=== PATIENT | male | born 1995 | race Caucasian/White ===

== ENCOUNTER 2019-08-11 17:35 | Emergency (ER) | payer OTHER ==
[2019-08-11 17:53] VITALS: TEMP 98.7
[2019-08-11] MEDS ORDERED: PENICILLIN VK 500MG STARTER 4 TAB BTL PO STA (18:13)
[2019-08-11] MEDS ORDERED: LORazepam 1 MG TAB PO STA (18:13)
--- NOTE | 2019-08-11 18:35 | ED ---
Neuro HPI - General Chief Complaint: Neuro Symptoms/Deficit Stated Complaint: Tooth pain, facial and arm numbness Time Seen by Provider: 08/11/19 17:55 Source: patient, family, RN notes reviewed, old records reviewed Mode of arrival: ambulatory Limitations: no limitations - History of Present Illness Is the patient presenting with stroke symptoms?: No Initial Comments: This Patient is a 24-year-old male with history of anxiety. He presents emergency department today with 5 days of left-sided facial tingling and numbness and dental pain after brushing his teeth at that time. Patient also states that over the past few days but she seems related to anxiety has had some tingling in arms and legs. He states that he has no headache. He denies any chest pain or shortness of breath. He reported to come to the emergency department because he was anxious as to why this is being caused. He states he does not use any medication for anxiety at this time. Patient denies any other complaints. - Related Data Home Medications: Previous Rx's Medication Instructions Recorded Ibuprofen [Motrin] 600 mg PO Q8HR PRN #20 tab 08/11/19 Penicillin V Potassium [Pen Vee K] 500 mg PO TID #21 tablet 08/11/19 Allergies/Adverse Reactions: Allergies Allergy/AdvReac Type Severity Reaction Status Date / Time No Known Allergies Allergy Verified 01/08/15 23:47 Review of Systems ROS Statement: Those systems with pertinent positive or pertinent negative responses have been documented in the HPI. ROS Other: All systems not noted in ROS Statement are negative. General Exam - General Exam Comments Initial Comments: 24-year-old male. Alert and oriented 3. Patient appears somewhat anxious. Limitations: no limitations General appearance: alert, in no apparent distress Head exam: Present: atraumatic, normocephalic, normal inspection Eye exam: Present: normal appearance, PERRL, EOMI. Absent: scleral icterus, conjunctival injection, periorbital swelling ENT exam: Present: normal exam, mucous membranes moist Neck exam: Present: normal inspection. Absent: tenderness, meningismus, lymphadenopathy Respiratory exam: Present: normal lung sounds bilaterally. Absent: respiratory distress, wheezes, rales, rhonchi, stridor Cardiovascular Exam: Present: regular rate, normal rhythm, normal heart sounds. Absent: systolic murmur, diastolic murmur, rubs, gallop, clicks GI/Abdominal exam: Present: soft, normal bowel sounds. Absent: distended, tenderness, guarding, rebound, rigid Extremities exam: Present: normal inspection, full ROM, normal capillary refill. Absent: tenderness, pedal edema, joint swelling, calf tenderness Back exam: Present: normal inspection, full ROM Neurological exam: Present: alert, oriented X3, CN II-XII intact Expanded Patient oriented to: Present: person Speech: Present: fluid speech Cranial nerves: EOM's Intact: Normal Cerebellar function: Finger to Nose: Normal Upper motor neuron: Elvis Neglect: Normal Sensory exam: Upper Extremity Light Touch: Normal, Lower Extremity Light Touch: Normal Motor strength exam: RUE: 5, LUE: 5, RLE: 5, LLE: 5 Eye Response: (4) open spontaneously Motor Response: (6) obeys commands Verbal Response: (5) oriented Amy Total: 15 Psychiatric exam: Present: normal affect, normal mood Skin exam: Present: warm, dry, intact, normal color. Absent: rash Stroke MDM - Medical Decision Making This patient's a 24-year-old male who presents emergency Department stay with left lower dental pain after brushing C5 days ago. He then states that he's had some tingling sensation over the left side. He has no murmur or deficits. Does report that he has sensation in hands and legs. Patient has an NIH of 0. He has no headache. No other complaints. Patient has full upper and lower extremity strength. At this time discussed this with Dr. Carrillo. I believe julio bruce's symptoms are related to anxiety. He does report that he is very anxious. Patient does have some evidence of gingival erythema. Discussed likely consider for myeloma and dental infection and nerve irritation. Discussed with the Patient on antibiotic. He was given Ambien and emergency department for anxiety does report some improvement of his symptoms. Past Medical History Past Medical History: No Reported History History of Any Multi-Drug Resistant Organisms: None Reported Past Surgical History: No Surgical Hx Reported Past Psychological History: Anxiety Smoking Status: Never smoker Past Alcohol Use History: Occasional Past Drug Use History: Marijuana Course Vital Signs 08/11/19 17:51 Temperature 98.7 F Pulse Rate 107 H Respiratory 19 Rate Blood Pressure 163/82 O2 Sat by Pulse 98 Oximetry Disposition Clinical Impression: Anxiety, Pain, dental, Paresthesia Disposition: HOME SELF-CARE Condition: Good Instructions (If sedation given, give patient instructions): Generalized Anxiety Disorder (ED), Toothache (ED) Additional Instructions: Taken a antibiotic for dental pain. Recommended following up with dentist as well as a primary care physician for further evaluation. Prescriptions: Ibuprofen [Motrin] 600 mg PO Q8HR PRN #20 tab PRN Reason: Pain Penicillin V Potassium [Pen Vee K] 500 mg PO TID #21 tablet Is patient prescribed a controlled substance at d/c from ED?: No Referrals: None,Stated [Primary Care Provider] - 1-2 days Filippo Ritter MD [REFERRING] - 1-2 days Time of Disposition: 18:33
[2019-08-11 18:46] VITALS: RESP 20
[2019-08-11 18:53] VITALS: BP 141/98; PULSE 78
== END 2019-08-11 19:17 | disposition home or self-care (01) ==
LOC: EC 17:35
DX: F41.9 Anxiety disorder, unspecified (principal); K08.89 Other specified disorders of teeth and supporting structures; K06.8 Other specified disorders of gingiva and edentulous alveolar ridge
CPT/HCPCS: 99284

== ENCOUNTER 2019-08-29 18:12 | Emergency (ER) | payer OTHER ==
[2019-08-29 18:22] VITALS: RESP 18
--- NOTE | 2019-08-29 18:47 | ED ---
General Adult HPI - General Chief complaint: Urogenital Stated complaint: blood in urine Time Seen by Provider: 08/29/19 18:34 Source: patient Mode of arrival: ambulatory Limitations: no limitations - History of Present Illness Initial comments: Patient presents the ED with his father for evaluation. Patient states that he has had hematuria for the past 3 days or so, and intermittent right flank pain since last night. Patient also states that he has had slight "burning" pain at the end of urination. Patient denies known history of renal stones. Patient denies trauma or injury, fever or chills, headache, chest pain, dyspnea, dizziness, abdominal pain, nausea or vomiting, diarrhea, urinary frequency, penile swelling or discharge, testicular pain or swelling, leg pain/numbness/weakness, incontinence, urinary retention, or any other symptoms o r complaints. Patient states that his right flank pain is currently very mild and dull. - Related Data Home Medications Medication Instructions Recorded Confirmed Ibuprofen [Motrin Ib] 400 mg PO Q6H 08/11/19 08/11/19 Previous Rx's Medication Instructions Recorded Ibuprofen [Motrin] 600 mg PO Q8HR PRN #20 tab 08/11/19 Penicillin V Potassium [Pen Vee K] 500 mg PO TID #21 tablet 08/11/19 Allergies Allergy/AdvReac Type Severity Reaction Status Date / Time No Known Allergies Allergy Verified 08/29/19 18:22 Review of Systems ROS Statement: Those systems with pertinent positive or pertinent negative responses have been documented in the HPI. ROS Other: All systems not noted in ROS Statement are negative. Past Medical History Past Medical History: No Reported History History of Any Multi-Drug Resistant Organisms: None Reported Past Surgical History: No Surgical Hx Reported Past Psychological History: Anxiety Smoking Status: Current every day smoker Past Alcohol Use History: Occasional Past Drug Use History: Marijuana General Exam Limitations: no limitations General appearance: alert, in no apparent distress Head exam: Present: atraumatic, normocephalic Eye exam: Present: normal appearance, EOMI ENT exam: Present: mucous membranes moist Respiratory exam: Present: normal lung sounds bilaterally. Absent: respiratory distress, wheezes, rales, rhonchi Cardiovascular Exam: Present: regular rate, normal rhythm, normal heart sounds, other (Normal radial pulses bilaterally) GI/Abdominal exam: Present: soft. Absent: distended, tenderness, guarding Extremities exam: Present: full ROM. Absent: tenderness, pedal edema Back exam: Present: full ROM. Absent: tenderness, CVA tenderness (R), CVA tenderness (L) Neurological exam: Present: alert, oriented X3, other (Patient has no evidence of lower extremity neurological deficit or saddle anesthesia on exam.). Absent: motor sensory deficit Psychiatric exam: Present: normal affect, normal mood Skin exam: Present: warm, dry, intact, normal color Course Vital Signs 08/29/19 18:18 Temperature 97.8 F Pulse Rate 84 Respiratory 18 Rate Blood Pressure 140/87 O2 Sat by Pulse 99 Oximetry Medical Decision Making - Medical Decision Making I suspect that the patient's symptoms are likely secondary to a recently passed renal stone given his CT abdomen/pelvis findings. Patient reports having minimal to no pain while in the ED. Patient's UA is suggestive of a possible mild UTI. Patient is afebrile and with very mild leukocytosis. Patient was given a dose of oral ciprofloxacin while in the ED, and will discharge patient home with a prescription for a course of ciprofloxacin. Patient was counseled about renal stones and UTIs, and he feels comfortable going home with his father at this time. He was clearly explained return and follow-up instructions. He was instructed to return to the ED should he develop new or worsening pain, a fever, chills, vomiting, feeling dizzy or faint, shortness of breath, or new or worsening symptoms. He feels comfortable with this plan. - Lab Data Result diagrams: 08/29/19 18:48 08/29/19 18:48 Lab Results 08/29/19 08/29/19 08/29/19 Range/Units 18:40 18:48 18:48 WBC 11.3 H (3.8-10.6) k/uL RBC 4.76 (4.30-5.90) m/uL Hgb 14.9 (13.0-17.5) gm/dL Hct 44.0 (39.0-53.0) % MCV 92.6 (80.0-100.0) fL MCH 31.3 (25.0-35.0) pg MCHC 33.8 (31.0-37.0) g/dL RDW 12.8 (11.5-15.5) % Plt Count 300 (150-450) k/uL Neutrophils % 68 % Lymphocytes % 23 % Monocytes % 6 % Eosinophils % 1 % Basophils % 0 % Neutrophils # 7.7 (1.3-7.7) k/uL Lymphocytes # 2.6 (1.0-4.8) k/uL Monocytes # 0.7 (0-1.0) k/uL Eosinophils # 0.1 (0-0.7) k/uL Basophils # 0.0 (0-0.2) k/uL Sodium 136 L (137-145) mmol/L Potassium 4.4 (3.5-5.1) mmol/L Chloride 103 (98-107) mmol/L Carbon Dioxide 24 (22-30) mmol/L Anion Gap 9 mmol/L BUN 9 (9-20) mg/dL Creatinine 0.68 (0.66-1.25) mg/dL Est GFR (CKD-EPI)AfAm >90 (>60 ml/min/1.73 sqM) Est GFR (CKD-EPI)NonAf >90 (>60 ml/min/1.73 sqM) Glucose 89 (74-99) mg/dL Calcium 9.8 (8.4-10.2) mg/dL Urine Color Colorless Urine Appearance Clear (Clear) Urine pH 7.0 (5.0-8.0) Ur Specific Nicholls 1.002 (1.001-1.035) Urine Protein Negative (Negative) Urine Glucose (UA) Negative (Negative) Urine Ketones Negative (Negative) Urine Blood Small H (Negative) Urine Nitrite Negative (Negative) Urine Bilirubin Negative (Negative) Urine Urobilinogen <2.0 (<2.0) mg/dL Ur Leukocyte Esterase Moderate H (Negative) Urine RBC <1 (0-5) /hpf Urine WBC 10 H (0-5) /hpf Ur Squamous Epith Cells <1 (0-4) /hpf Urine Bacteria Rare H (None) /hpf - Radiology Data Radiology results: report reviewed (CT abdomen and pelvis without contrast shows: mild right sided pelvicaliectasis, which may be secondary to a radiolucent stone or a recently passed stone; mild circumferential bladder wall thickening) Disposition Clinical Impression: Flank pain Narrative: Possible UTI; suspected recently passed renal stone Disposition: HOME SELF-CARE Condition: Stable Instructions (If sedation given, give patient instructions): Kidney Stones (ED), Urinary Tract Infection in Men (ED) Additional Instructions: Return to the ER immediately should you develop new or worsening pain, a fever, chills, vomiting, feeling dizzy or faint, shortness of breath, or new or worsening symptoms. Follow up closely with your primary care provider. Is patient prescribed a controlled substance at d/c from ED?: No Referrals: None,Stated [Primary Care Provider] - 1-2 days Filippo Ritter MD [REFERRING] - 1-2 days Time of Disposition: 20:07
[2019-08-29 19:01] LABS: Appearance,Urine Clear (Clear); Bacteria,Urine Rare /hpf; Bilirubin,Urine Negative (Negative); Blood,Urine Small (Negative); Color,Urine Colorless; Glucose,Urine (UA) Negative (Negative); Ketones,Urine Negative (Negative); Leukocyte Esterase,Urine Moderate (Negative); Nitrite,Urine Negative (Negative); Protein,Urine Negative (Negative); RBC,Urine <1 /hpf (0-5); Specific Gravity,Urine 1.002 (1.001-1.035); Squamous Epithelial Cell,Urine <1 /hpf (0-4); Urobilinogen,Urine <2.0 mg/dL (<2.0); WBC,Urine 10 /hpf (0-5)
[2019-08-29 19:21] LABS: Basophils % (A) 0 %; Eosinophils # (A) 0.1 k/uL (0-0.7); Eosinophils % (A) 1 %; HGB 14.9 gm/dL (13.0-17.5); Lymphocytes # (A) 2.6 k/uL (1.0-4.8); Lymphocytes % (A) 23 %; MCH 31.3 pg (25.0-35.0); MCHC 33.8 g/dL (31.0-37.0); MCV 92.6 fL (80.0-100.0); Mean Platelet Volume 8.1; Monocytes # (A) 0.7 k/uL (0-1.0); Monocytes % (A) 6 %; Neutrophils # (A) 7.7 k/uL (1.3-7.7); Neutrophils % (A) 68 %; Platelet Count 300 k/uL (150-450); RBC 4.76 m/uL (4.30-5.90); RDW 12.8 % (11.5-15.5); WBC 11.3 k/uL (3.8-10.6)
--- NOTE | 2019-08-29 19:21 | CT ---
EXAMINATION TYPE: CT abdomen pelvis wo con DATE OF EXAM: 08/29/2019 COMPARISON: None HISTORY: 24-year-old male Hematuria, low back pain. CT DLP: 1835.4 mGycm. Automated exposure control for dose reduction was used. TECHNIQUE: Contiguous axial scanning of the abdomen and pelvis without IV contrast. Coronal and sagit kenyetta reconstructions performed. FINDINGS: LUNG BASES: No significant abnormality is appreciated. LIVER/GB: No significant abnormality is appreciated by noncontrast CT. PANCREAS: No significant abnormality is seen by noncontrast CT. SPLEEN: No significant abnormality is seen by noncontrast CT. ADRENALS: No significant abnormality is seen by noncontrast CT. KIDNEYS: There is mild right-sided pelvicaliectasis. No renal calculi. No suspicious calcification se en along the course of either ureter. LYMPH NODES: No mesenteric or retroperitoneal lymphadenopathy. BOWEL: No dilated small bowel, free fluid, or free air. Normal appendix. While snowboarding. No latonya colonic inflammatory change. PELVIS: Possible ventral lateral thickening. No abnormal fluid collection in pelvis or pelvic lymphad enopathy. BONES: No osseous destructive process. Degenerative disc space narrowing L5-S1. IMPRESSION: 1. Mild right-sided pelvicaliectasis. Findings may be secondary to a radiolucent stone or reflect a recently passed stone. No additional nephrolithiasis seen. 2. Mild circumferential bladder wall thickening; correlate to exclude cystitis.
[2019-08-29 19:37] LABS: African American GFR (CKD) >90 (>60 ml/min/1.73 sqM); Anion Gap 9 mmol/L; Blood Urea Nitrogen 9 mg/dL (9-20); Calcium 9.8 mg/dL (8.4-10.2); Carbon Dioxide 24 mmol/L (22-30); Chloride 103 mmol/L (98-107); Glucose 89 mg/dL (74-99); Non-African American GFR(CKD) >90 (>60 ml/min/1.73 sqM); Potassium 4.4 mmol/L (3.5-5.1); Sodium 136 mmol/L (137-145)
[2019-08-29] MEDS ORDERED: CIPROFLOXACIN HCL 500 MG TAB PO STA (20:00)
[2019-08-29 20:21] VITALS: BP 140/80; PULSE 78; TEMP 97.9
== END 2019-08-29 20:21 | disposition home or self-care (01) ==
LOC: EC 18:12
DX: R10.9 Unspecified abdominal pain (principal); D72.829 Elevated white blood cell count, unspecified; Z87.442 Personal history of urinary calculi; F17.200 Nicotine dependence, unspecified, uncomplicated; Z79.1 Long term (current) use of non-steroidal anti-inflammatories (NSAID)
CPT/HCPCS: 36415; 74176; 80048; 81001; 85025; 99284

== ENCOUNTER → 2020-05-16 | Outpatient (CLI) | payer OTHER | END | disposition home or self-care (01) | LOC: LABWHC1 13:45 | PROVIDERS: ATTEND Emergency Medicine | DX: Z20.822 Contact with and (suspected) exposure to COVID-19 (principal) | CPT/HCPCS: U0003; C9803; U0005 ==

== ENCOUNTER 2022-10-30 18:42 | Emergency (ER) | payer OTHER ==
[2022-10-30 19:23] VITALS: RESP 20
[2022-10-30] MEDS ORDERED: LIDOCAINE 1% INJ 10MG/ML (30 ML VIAL-PF) SQ ONE (21:01)
--- NOTE | 2022-10-30 21:42 | ED ---
Wound/Laceration HPI - General Chief Complaint: Wound/Laceration Stated Complaint: @ work Cut L Thumb to the bone Time Seen by Provider: 10/30/22 21:00 Source: patient Mode of arrival: ambulatory Limitations: no limitations - History of Present Illness Initial Comments: Patient is a 27-year-old male who presents to the emergency department for laceration. Patient cut left thumb on a knife at work. He reports minimal pain. No numbness or tingling. No issues with range of motion. Tetanus is up-to-date. - Related Data Home Medications Medication Instructions Recorded Confirmed Ibuprofen [Motrin Ib] 400 mg PO Q6H 08/11/19 08/11/19 Previous Rx's Medication Instructions Recorded Ibuprofen [Motrin] 600 mg PO Q8HR PRN #20 tab 08/11/19 Penicillin V Potassium [Pen Vee K] 500 mg PO TID #21 tablet 08/11/19 Ibuprofen [Motrin] 800 mg PO Q8HR PRN #30 tab 10/30/22 Allergies Allergy/AdvReac Type Severity Reaction Status Date / Time No Known Allergies Allergy Verified 08/29/19 18:22 Review of Systems ROS Statement: Those systems with pertinent positive or pertinent negative responses have been documented in the HPI. ROS Other: All systems not noted in ROS Statement are negative. Past Medical History Past Medical History: No Reported History History of Any Multi-Drug Resistant Organisms: None Reported Past Surgical History: No Surgical Hx Reported Past Psychological History: Anxiety Past Alcohol Use History: Occasional Past Drug Use History: Marijuana General Exam Limitations: no limitations General appearance: alert, in no apparent distress Eye exam: Present: normal appearance, PERRL, EOMI. Absent: scleral icterus, conjunctival injection, periorbital swelling Respiratory exam: Present: normal lung sounds bilaterally. Absent: respiratory distress, wheezes, rales, rhonchi, stridor Extremities exam: Present: other (2 cm laceration tip of left thumb no tendons or bone visualized non bleeding neurocascularly intact full ROM ) Neurological exam: Present: alert, oriented X3, CN II-XII intact Psychiatric exam: Present: normal affect, normal mood Skin exam: Present: warm, dry, intact, normal color. Absent: rash Course Vital Signs 10/30/22 10/30/22 19:20 22:08 Temperature 98.5 F 98.6 F Pulse Rate 78 83 Respiratory 20 20 Rate Blood Pressure 141/86 130/85 O2 Sat by Pulse 98 98 Oximetry Procedures - Laceration Laceration #1 Indication: laceration Site: other (left thumb ) Description: flap Anesthesia Technique: local infiltration, nerve block Pre-repair: wound explored Type of Sutures: nylon Size of Sutures: 4-0 Number of Sutures: 3 Technique: simple, interrupted Patient Tolerated Procedure: well, no complications Medical Decision Making - Medical Decision Making Was pt. sent in by a medical professional or institution ([facility] Porras, WARDROBE ATTENDANT, urgent care, hospital, or long-term...) When possible be specific @ -No Did you speak to anyone other than the patient for history (EMS, parent, family, police, friend...)? What history was obtained from this source @ -No Did you review nursing and triage notes (agree or disagree)? Why? @ -I reviewed and agree with nursing and triage notes Were old charts reviewed (outside hosp., previous admission, EMS record, old EKG, old radiological studies, urgent care reports/EKG's, long-term records)? Report findings @ -No old charts were reviewed Differential Diagnosis (chest pain, altered mental status, abdominal pain women, abdominal pain men, vaginal bleeding, weakness, fever, dyspnea, syncope, headache, dizziness, GI bleed, back pain, seizure, CVA, palpatations, mental health)? @ -Laceration, abrasion, skin tear EKG interpreted by me (3pts min.). @ -None X-rays interpreted by me (1pt min.). @ -None done CT interpreted by me (1pt min.). @ -None done U/S interpreted by me (1pt. min.). @ -None done What testing was considered but not performed or refused? (CT, X-rays, U/S, labs)? Why? @ -None What meds were considered but not given or refused? Why? @ -None Did you discuss the management of the patient with other professionals (professionals i.e. [facility] Porras, WARDROBE ATTENDANT, lab, RT, psych nurse, social work coordinator, lens grinder apprentice, teacher, community arts officer, onsite case manager)? Give summary @ -No Was smoking cessation discussed for >3mins.? @ -No Was critical care preformed (if so, how long)? @ -No Were there social determinants of health that impacted care today? How? (Homelessness, low income, unemployed, alcoholism, drug addiction, transportation, low edu. Level, literacy, decrease access to med. care, senior care, rehab)? @ -No Was there de-escalation of care discussed even if they declined (Discuss DNR or withdrawal of care, Hospice)? DNR status @ -No What co-morbidities impacted this encounter? (DM, HTN, Smoking, COPD, CAD, Cancer, CVA, ARF, Chemo, Hep., AIDS, mental health diagnosis, sleep apnea, morbid obesity)? @ -None Was patient admitted / discharged? Hospital course, mention meds given and route, prescriptions, significant lab abnormalities, going to OR and other pertinent info. @ -Discharged Undiagnosed new problem with uncertain prognosis? @ -No Drug Therapy requiring intensive monitoring for toxicity (Heparin, Nitro, Insulin, Cardizem)? @ -No Were any procedures done? @ -Yes, laceration repair Diagnosis/symptom? @ -Laceration Acute, or Chronic, or Acute on Chronic? @Acute Uncomplicated (without systemic symptoms) or Complicated (systemic symptoms)? @ -uncomplicated Side effects of treatment? @ -No Exacerbation, Progression, or Severe Exacerbation? @ -No Poses a threat to life or bodily function? How? (Chest pain, USA, VT, pneumonia, PE, COPD, DKA, ARF, appy, cholecystitis, CVA, Diverticulitis, Homicidal, Suicidal, threat to staff... and all critical care pts) @ -No Dr. Evans is my attending Disposition Clinical Impression: Laceration Disposition: HOME SELF-CARE Condition: Good Instructions (If sedation given, give patient instructions): Care For Your Stitches (ED), Laceration (ED) Additional Instructions: Leave wound uncovered. Keep wound clean and dry. Wash with a mild soap. Take Tylenol or anti-inflammatories such as Motrin for pain. Follow-up with primary care provider in 1-2 days. Return for suture removal in 7 days. Report back to the emergency department if you experience new, concerning, or worsening symptoms. Prescriptions: Ibuprofen [Motrin] 800 mg PO Q8HR PRN #30 tab PRN Reason: Pain Is patient prescribed a controlled substance at d/c from ED?: No Referrals: None,Stated [Primary Care Provider] - 1-2 days
[2022-10-30 22:09] VITALS: BP 130/85; PULSE 83; TEMP 98.6
== END 2022-10-30 22:08 | disposition home or self-care (01) ==
LOC: EC 18:42
DX: S61.012A Laceration without foreign body of left thumb without damage to nail, initial encounter (principal); F41.9 Anxiety disorder, unspecified; F12.90 Cannabis use, unspecified, uncomplicated; Z79.899 Other long term (current) drug therapy; W26.0XXA Contact with knife, initial encounter
CPT/HCPCS: 99282; 12001; J2001